=== PATIENT | male | born 1945 | race Caucasian/White ===

== ENCOUNTER → 2017-10-07 | Outpatient (CLI) | payer OTHER | LOC: FCPNEURO 21:30 | PROVIDERS: ATTEND Psychiatry & Neurology Sleep Medicine | DX: G47.33 Obstructive sleep apnea (adult) (pediatric) (principal); G47.39 Other sleep apnea ==

== ENCOUNTER 2018-05-24 09:17 | Observation (INO) | payer OTHER ==
[2018-05-24] MEDS ORDERED: FAMOTIDINE 20 MG TAB PO ONE (09:21)
[2018-05-24] MEDS ORDERED: ASPIRIN EC 325 MG TAB PO ONE ×2 (09:21→09:57)
[2018-05-24] MEDS ORDERED: DIAZEPAM 5 MG TAB PO ONE (09:21)
[2018-05-24] MEDS ORDERED: NS 1,000 ML IV ONE (09:21)
[2018-05-24] MEDS ORDERED: diphenhydrAMINE 25 MG CAP PO ONE ×2 (09:21→09:57)
[2018-05-24] MEDS ORDERED: DIAZEPAM 5 MG TAB ONE (09:57)
[2018-05-24] MEDS ORDERED: FAMOTIDINE 20 MG TAB ONE (09:57)
[2018-05-24 10:03] LABS: PLATELET COUNT 216 10^3/uL (150-400)
[2018-05-24] MEDS ORDERED: IOPAMIDOL (ISOVUE-370) 150 ML BTL IV ONE ×2 (10:15→12:46)
[2018-05-24] MEDS ORDERED: HEPARIN 10,000 UNIT/10 ML MDV (1,000 UNIT/ML) ONE (10:15)
[2018-05-24] MEDS ORDERED: fentaNYL 100 MCG/2 ML INJ ONE ×2 (10:15→12:17)
[2018-05-24] MEDS ORDERED: VERAPAMIL 5 MG/2 ML VIAL ONE (10:15)
[2018-05-24] MEDS ORDERED: LIDOCAINE 1% 300 MG/30 ML SDV ONE (10:15)
[2018-05-24] MEDS ORDERED: MIDAZOLAM 2 MG/2 ML VIAL ONE ×2 (10:15→12:17)
[2018-05-24 10:22] LABS: INR 0.97 (0.83-1.16); PROTIME(PATIENT) 13.1 SEC (12.0-15.0)
--- NOTE | 2018-05-24 11:01 | PDHPUP ---
History & Physical Update H&P update statement: This history and physical update is based on an assessment of the patient which was completed after admission or registration (within 24 hours), but prior to the surgery/procedure. H&P update: H&P reviewed & patient examined, no change in patient's condition since H&P completed
--- NOTE | 2018-05-24 11:01 | PDPROPOC ---
Sedation Plan of Care Sedation Plan of Care: vital signs stable, mental status noted, patient educated of risks, benefits, alternatives, patient can tolerate sedation ASA Classification: ASA 1 Planned drugs: fentanyl, midazolam Mallampati Score: Class 1 Mallampati Reference Image: Patient passed 3-3-2 rule?: Yes
--- NOTE | 2018-05-24 11:46 | CPEKG ---
Test Reason : OPEN Blood Pressure : / mmHG Vent. Rate : 082 BPM Atrial Rate : 083 BPM P-R Int : 161 ms QRS Dur : 089 ms QT Int : 391 ms P-R-T Axes : 071 030 -04 degrees QTc Int : 457 ms Sinus rhythm Borderline T abnormalities, inferior leads Confirmed by Elena Brink ([id number]) on 05/24/2018 11:45:46 AM Referred By: Confirmed By:Elena Brink
[2018-05-24] MEDS ORDERED: EPINEPHrine 1 MG/10 ML SYR IVP ONE (12:20)
--- NOTE | 2018-05-24 12:24 | PDDXCAT ---
Diagnostic Cath Note - . Date: 05/24/18 Biomedical Manager: Isai Indication: CCC Class III and IV angina on medical treatment - Procedure Access: left groin (The case was started using the right radial however abandoned due to tortuosity, access in the right groin was complicated by dissection of the iliac artery.) - Materials Left Heart Cath size: 5F Left Heart Cath materials: JL4.0, JR4.0, pigtail - Findings-Left Heart Catheterization LM: Large caliber vessel. Bifurcation into the left anterior descending and circumflex vessels. Angiographically free of disease. LAD: Large caliber vessel. 2 principal diagonal branches identified. Subtotal occlusion in the mid segment. GIULIA 2 flow in the distal LAD. LCX: Large caliber vessel. 2 small obtuse marginal branches, a small posterolateral and a large posterolateral branch are identified. Minimal luminal irregularities with no obstructive lesions. RCA: Moderate caliber vessel. The PDA is identified (dominant). There are several small posterolateral branches. Minimal luminal irregularities distally with no obstruction. LVEF: 60%. Wall motion: Mild anterolateral hypokinesis. Complications: Focal dissection in the right iliac artery without dye extravasation. Estimated blood loss: <50ml Closure method: manual pressure Assessment: Single-vessel CAD with subtotal occlusion of the mid LAD. The patient presented with [place] Cardiovascular [employer] class 3 angina. Plan: He will be referred to Interventional Cardiology. Intervention: There is a separately dictated note.
[2018-05-24] MEDS ORDERED: CLOPIDOGREL BISULFATE 75 MG TAB ONE (12:26)
[2018-05-24] MEDS ORDERED: NITROGLYCERIN 1,500 MCG/15 ML VIAL MISC ONE (12:40)
[2018-05-24] MEDS ORDERED: ONDANSETRON 4 MG/2 ML VIAL ONE (13:55)
[2018-05-24] MEDS ORDERED: OXYCODONE/APAP 5/325 TAB PO PRN (14:05)
[2018-05-24] MEDS ORDERED: LORazepam 2 MG/ML INJ IVP PRN (14:05)
[2018-05-24] MEDS ORDERED: CLOPIDOGREL BISULFATE 75 MG TAB PO ONE (14:05)
[2018-05-24] MEDS ORDERED: HYDROCODONE/APAP 5/325 TAB PO PRN (14:05)
[2018-05-24] MEDS ORDERED: TEMAZEPAM 15 MG CAP PO PRN (14:05)
[2018-05-24] MEDS ORDERED: ATROPINE SULFATE 1 MG/10 ML SYR IVP PRN (14:05)
[2018-05-24] MEDS ORDERED: NITROGLYCERIN 0.4 MG BTL SL PRN (14:05)
[2018-05-24] MEDS ORDERED: ONDANSETRON 4 MG/2 ML VIAL IVP PRN (14:05)
--- NOTE | 2018-05-24 14:08 | PDCTREPORT ---
Cardiothoracic Procedure Rpt Cardiothoracic Procedure Report: Procedure: Implantation of a drug-eluting stent within the proximal LAD Indications: 73-year-old with crescendo angina status post diagnostic angiogram revealing critical subtotal stenosis of the proximal LAD. After reviewing diagnostic angiograms by my partner Dr. Alex it was elected to proceed with ad Hoc PCI. Patient was anticoagulated with heparin. Therapeutic ACT was confirmed. She said been previously placed in the right radial artery, right femoral artery and left femoral artery. Left femoral artery access was used. 6 Persian sheath was exchanged. For details of the procedure please see attached computer report. Using a 6 Persian EBU 3.5 guiding catheter left main coronary selectively intubated. Using a 0.014 choice floppy wire the LAD stenosis was crossed and the wire placed in the apical segment. It was primarily stented with a 3.0 x 16 mm synergy stent. Repeat angiograms revealed step-up and step-down. He was administered intracoronary nitroglycerin. The proximal segment continue to look somewhat hazy. A 2nd 3.0 x 20 mm synergy stent was placed proximally. Stent edge was overlapped and deployed using a single inflation. Repeat angiograms revealed GIULIA grade 3 flow. Wire was withdrawn. The left femoral sheath was removed with a Angio-Seal. Patient is taken to recovery for continued care Conclusions: Successful PCI and stenting of the proximal LAD.
--- NOTE | 2018-05-24 14:17 | SOAPPROG ---
SOAP Progress Note Assessment/Plan: Assessment: Left temporal/kaylie mandibular headache of uncertain etiology. There are no focal neurologic findings. He has been administered Zofran. Will continue supportive care with clinical follow-up. Will perform a noncontrast CT to exclude bleeding. 05/24/18 14:15 Subjective: Called to see patient for onset of 8 headache. On my arrival patient is having discomfort involving the l temporal region with some radiation down into the left jaw. It is not associated with speech difficulties. There is no facial asymmetry. There is no motor dysfunction. There is no sensory dysfunction there is mild nausea. He is post LAD PCI. He has had headaches in the past. He does not remember one quite like this before. Objective: Laboratory Results 05/24/18 09:40 05/24/18 09:40 PT 13.1 SEC (12.0-15.0) 05/24/18 09:40 INR 0.97 (0.83-1.16) 05/24/18 09:40 Physical Exam - Physical Exam General Appearance: alert, mild distress EENT: PERRL/EOMI, No anisocoria Neck: non-tender, full range of motion Respiratory: lungs clear Cardiac/Chest: regular rate, rhythm, No JVD Skin: warm/dry, No rash Extremities: non-tender, No pedal edema Neuro/Psych: no motor/sensory deficits, alert, No facial droop, No speech abnormalities ICD10 Worksheet Patient Problems: Problems Problem Status Onset Coronary artery disease Acute History of placement of stent in LAD coronary artery Acute - ICD10 Problem Qualifiers (1) Coronary artery disease (2) History of placement of stent in LAD coronary artery
[2018-05-24] MEDS ORDERED: IOPAMIDOL (ISOVUE 370) 100 ML BTL IV ONE (15:31)
--- NOTE | 2018-05-24 17:17 | CPEKG ---
Test Reason : OPEN Blood Pressure : / mmHG Vent. Rate : 061 BPM Atrial Rate : 060 BPM P-R Int : 171 ms QRS Dur : 094 ms QT Int : 437 ms P-R-T Axes : 069 033 002 degrees QTc Int : 441 ms Sinus rhythm Confirmed by Elena Brink ([id number]) on 05/24/2018 5:16:57 PM Referred By: Confirmed By:Elena Brink
[2018-05-24] MEDS ORDERED: LOSARTAN POTASSIUM 50 MG TAB PO SCH (21:00)
[2018-05-24] MEDS ORDERED: LOSARTAN/HCTZ 50/12.5 1 TAB PO SCH (21:00)
[2018-05-25] MEDS ORDERED: LEVOTHYROXINE 25 MCG TAB PO SCH (06:00)
[2018-05-25 07:51] VITALS: BP 134/72
[2018-05-25] MEDS ORDERED: CLOPIDOGREL BISULFATE 75 MG TAB PO SCH (09:00)
[2018-05-25] MEDS ORDERED: amLODIPine BESYLATE 5 MG TAB PO SCH (09:00)
[2018-05-25] MEDS ORDERED: ASPIRIN EC 325 MG TAB PO SCH (09:00)
--- NOTE | 2018-05-25 10:37 | ASDISCHSUM ---
Discharge Information Plan Status:Home with No Needs Medically Cleared to Leave: Discharge Date: CM D/C Disposition:Home, Routine, Self-Care ADT D/C Disposition:Home, Routine, Self-Care Projected Discharge Date: Transportation at D/C:Family Discharge Delay Reason: Follow-Up Date: Discharge Slot: Final Diagnosis: Placement Information Patient Contact Information Contact Name:MANULE Relationship: Address:[address] [place] [address] Work Phone: City:[place] [facility] Phone: State/Zip Code:[place] [address] Email: Financial Information Financial Class:Medicare Primary Plan Desc:MEDICARE OUTPATIENT Primary Plan Number:[id number] Secondary Plan Desc:[employer] PPO Secondary Plan Number:[id number] Assessment Information LACE LACE Length of stay for Answers: Less than 1 day current admission Acuity / Level of Answers: No Care: Did the patient have an inpatient admission? Comorbidities - select Answers: Coronary Artery Disease all that apply # of Emergency department Answers: 0 visits in the last 6 months Score: 2 Date Signed: 05/25/2018 10:36 AM Electronically Signed By:Tonya Dasilva Intervention Information Intervention Type:No Admission Order Date of Service:05/24/2018 09:42 AM Patient Type:Observation Staff Member:Marnie Hernandez Hours: Discipline: Severity: Comment:
--- NOTE | 2018-05-25 15:20 | GDS ---
ADMIT DIAGNOSES: 1. Shortness of breath. 2. Chest tightness. 3. Planned cardiac angiogram to evaluate cardiac status. DISCHARGE DIAGNOSES: 1. Status post cardiac angiogram with percutaneous coronary intervention of the proximal LAD 2. Coronary artery disease. 3. Shortness of breath. 4. Chest discomfort. COURSE OF HOSPITALIZATION: This gentleman was seen in clinic on May 21, 2018, with complaints of escalating shortness of breath, notably with exertion. Some episodes were occurring at rest. He did have associated chest tightness. He has a strong family history of coronary artery disease. It was recommended to proceed with left heart catheterization. He declined at that time. He was started on metoprolol tartrate 25 mg twice daily, aspirin 81 mg daily, and Nitrostat for anginal symptoms. He was scheduled for a heart catheterization for May [address] Abhinav Alex. He was taken to the labor conciliator by Dr. Abhinav Alex where he did find occlusion of the proximal left circumflex. Dr. Trevino then intervened, placing a drug-eluting stent to the proximal LAD with no complications. He was recovered overnight in PCU where he has done well. He has been up ambulating with no problems. His groin sites are intact. Attempted right wrist catheterization site has no bleeding, induration, or pain. Radial and ulnar pulses are intact with good capillary refill. At this time, he is stable for discharge. ALLERGIES: He will go home on amlodipine 5 mg daily, Nitrostat 0.4 mg sublingual as needed for angina, losartan/HCTZ 100/12.5 mg 1 daily, Synthroid 25 mcg daily, aspirin 325 mg at bedtime, Plavix 75 mg once daily. PHYSICAL EXAMINATION: VITAL SIGNS: On day of discharge, blood pressure 134/72 , heart rate 84 and regular. EKG shows a normal sinus rhythm. HEART: Rate is regular. No murmurs, rubs, gallops. LUNGS: Sounds are clear to auscultation. No wheezes, rales, or rhonchi. EXTREMITIES: Groin site intact with no bleeding , induration or pain. Peripheral pulses are 2+ bilaterally. PROCEDURE REPORT: Dr. Alex initiated the cardiac angiogram revealing a critical subtotal stenosis of the proximal LAD. Dr. Trevino then intervened and was able to successfully place a drug-eluting stent to the proximal LAD with no complications. CT scan of head with contrast on 05/24/2018 Indication for scan, headache post LAD catheterization and stent placement. Impression: Negative post-contrast CT examination of the brain. CT angio of the neck with IV contrast 05/24/2018. Clinical indication: Left carotid dissection. Impression: 1. No evidence of left carotid artery dissection. 2. Internal carotid artery atherosclerosis without critical high-grade stenosis or occlusion. 3. Patent vertebral arteries. 4. Hyper vascularization left thyroid nodule. Further evaluation with ultrasound is recommended to rule out malignancy. DISCHARGE PLAN: He will follow up with Dr. Alex in 7-10 days. Appointment is made. Wrist precautions were reviewed and written instructions were given. Bilateral groin cath insertion sites were evaluated with no induration, pain, or ecchymosis. Peripheral pulses are 2+. Groin precautions were reviewed with him. No heavy lifting, pushing, pulling greater than 10 pounds for 1 week. No sitting in a tub of water for 1 week. He is instructed to keep bowels soft to avoid bearing down. Should bleeding from sites occur, he is to hold firm pressure and go to the emergency room if bleeding is not stopping. At this time, he is currently stable for discharge. /[id number]/MODL MTDD
== END 2018-05-25 10:54 | disposition home or self-care (01) ==
LOC: FCATH 09:17 → F2W 13:26
PROVIDERS: ADMIT Internal Medicine Cardiovascular Disease; ATTEND Internal Medicine Cardiovascular Disease
DX: I25.110 Atherosclerotic heart disease of native coronary artery with unstable angina pectoris (principal); E04.1 Nontoxic single thyroid nodule; E78.5 Hyperlipidemia, unspecified; I10 Essential (primary) hypertension
CPT/HCPCS: 70450; 70498; 93005; 93459; C1760; C1769; C1874; C1887; C9600; J1200; J1644; J2250; J2270; J2405; J3010; Q9967

== ENCOUNTER → 2018-12-07 | Outpatient (CLI) | payer OTHER | LOC: BMCIMAGING 13:33 ==